=== PATIENT | male | born 1955 | race Caucasian/White ===

== ENCOUNTER 2020-08-12 10:12 | Observation (INO) ==
[~2020-08-12 10:12] MED LIST: *HR* HYDROmorphone PF 0.5 MG/0.5 ML SYRINGE IVP PRN; *HR* OxyCODONE Immed Rel 5 MG TABLET PO PRN; Acetaminophen IV 1,000 MG/100 ML BAG IVPB PRN; Ondansetron 4 MG/2 ML VIAL IVP PRN
[2020-08-12] MEDS ORDERED: CeFAZolin Syr 2,000MG/20 ML 2,000 MG/20 ML SYRINGE IVPB ONE ×3 (10:36→21:53)
[2020-08-12] MEDS: Ringers Solution, Lactated 1,000 ML IVC SCH ×2 (10:56→20:13)
[2020-08-12] MEDS ORDERED: Lidocaine HCL 4 ML Topical Solution (Laryng-O-Jet Kit Sterile Pak) TP ONE (11:15)
[2020-08-12] MEDS ORDERED: *HR* Propofol 200 MG/20 ML VIAL IVP ONE ×2 (11:21→14:42)
[2020-08-12] MEDS ORDERED: *HR* Midazolam HCl 2 MG/2 ML VIAL ONE (11:21)
[2020-08-12] MEDS ORDERED: *HR* HYDROMORPHONE 2 MG/ML VIAL ONE (11:21)
[2020-08-12] MEDS ORDERED: *HR* FentaNYL (PF) 100 MCG/2 ML VIAL ONE (11:21)
[2020-08-12] MEDS ORDERED: *HR* Rocuronium Bromide 50 MG/5 ML VIAL ONE (11:24)
[2020-08-12] MEDS ORDERED: Lidocaine -MPF 2% 2 ML VIAL ONE (11:24)
[2020-08-12] MEDS ORDERED: *HR* Succinylcholine 200 MG/10 ML VIAL IVP ONE (11:24)
[2020-08-12] MEDS ORDERED: Ondansetron 4 MG/2 ML VIAL ONE ×2 (11:24→15:15)
[2020-08-12] MEDS ORDERED: *HR* Remifentanil 1 MG VIAL IVP ONE ×3 (11:29→18:06)
[2020-08-12] MEDS ORDERED: Bacitracin 50,000 UNIT, Polymyxin B Sulfate 500,000 UNIT, Sodium Chloride IRRigation 1,... IR ONE (11:55)
[2020-08-12] MEDS ORDERED: Albumin Human 5% 25.0 GM/500 ML IV.SOLN ONE (12:09)
[2020-08-12] MEDS ORDERED: *HR* Phenylephrine 10 MG/ML VIAL ONE (18:24)
[2020-08-12] MEDS ORDERED: *HR* OxyCODONE Immed Rel 5 MG TABLET PO PRN ×2 (20:16→21:53)
[2020-08-12] MEDS ORDERED: *HR* HYDROmorphone PF 0.5 MG/0.5 ML SYRINGE IVP PRN (20:16)
[2020-08-12] MEDS ORDERED: Ondansetron 4 MG/2 ML VIAL IVP PRN ×2 (20:16→21:53)
[2020-08-12] MEDS ORDERED: Naloxone 0.4 MG/ML INJ IVP PRN (21:53)
[2020-08-12] MEDS ORDERED: Fluticasone Propionate Nasal 50 MCG/SPRAY BOTTLE NS PRN (21:53)
[2020-08-12] MEDS ORDERED: Ringers Solution, Lactated 1,000 ML IVC SCH ×2 (21:53)
[2020-08-12] MEDS ORDERED: NON-FORMULARY MEDICATION 1 EACH EACH (Omega-3 Fatty Acids [Fish Oil] 300 MG Capsule) PO SCH (21:53)
[2020-08-12] MEDS: gemfibroziL 600 MG TABLET PO SCH (22:14)
[2020-08-12] MEDS: Acetaminophen 325 MG TABLET PO PRN (23:38)
[2020-08-12] MEDS: CeFAZolin 2 GM/120 ML BAG IVPB SCH (23:39)
[2020-08-13] MEDS: Aspirin Enteric Coated 325 MG Tablet PO SCH (08:07)
[2020-08-13] MEDS: CeFAZolin 2 GM/120 ML BAG IVPB SCH (08:09)
[2020-08-13] MEDS: gemfibroziL 600 MG TABLET PO SCH ×2 (08:13→22:27)
[2020-08-13] MEDS: lisinopriL 20 MG TABLET PO SCH (08:15)
[2020-08-13] MEDS ORDERED: RED YEAST RICE 600 MG PO SCH (09:00)
[2020-08-13] MEDS ORDERED: *HR* Metformin 500 MG TABLET PO SCH (09:00)
[2020-08-13 10:16] LABS: Basophils % 0.4 %; Eosinophils # 0.1 K/mcL (0.0-0.6); Eosinophils % 0.4 %; Hematocrit 34.9 % (37.5-50.1); Hemoglobin 11.1 g/dL (12.9-16.9); Immature Granulocytes % 0.4 % (0-4); Lymphocytes # 2.7 K/mcL (0.6-4.6); Lymphocytes % 23.9 %; Mean Corpuscular HGB Conc 31.8 g/dL (31.6-35.5); Mean Corpuscular Hemoglobin 25.6 pg (28.0-33.3); Mean Corpuscular Volume 80.6 fL (83.0-100.0); Mean Platelet Volume 9.4 fL (9.4-12.4); Monocytes # 1.1 K/mcL (0.0-1.3); Monocytes % 9.8 %; Neutrophils # 7.3 K/mcL (1.6-8.9); Platelet Count 271 K/mcL (140-400); Red Blood Count 4.33 M/mcL (4.19-5.50); Red Cell Distribution Width 14.1 % (11.5-14.5); Segmented Neutrophils % 65.1 %; White Blood Count 11.2 K/mcL (4.3-11.1)
[2020-08-13] MEDS ORDERED: *HR* Dextrose 50 % in Water (Vial) 50 ML VIAL IVP PRN (10:29)
[2020-08-13] MEDS ORDERED: Dextrose Gel 15 GM/37.5 ML TUBE PO PRN ×2 (10:29)
[2020-08-13] MEDS ORDERED: D5% in Water 1,000 ML IVC PRN (10:29)
[2020-08-13 10:39] LABS: BUN/Creatinine Ratio 16 (6-26); Blood Urea Nitrogen 17 mg/dL (8-23); Calcium 8.4 mg/dL (8.6-10.3); Carbon Dioxide 25 mEq/L (23-29); Chloride 103 mEq/L (98-107); Glucose 94 mg/dL (70-105); Osmolality,Calculated 283 (280-300); Sodium 136 mEq/L (136-145); eGFR For African Americans > 60 (> 60); eGFR For Non-African Americans > 60 (> 60)
[2020-08-13] MEDS: Gabapentin 300 MG CAPSULE PO SCH ×3 (12:50→22:06)
[2020-08-13] MEDS: Insulin LISPRO 300 UNITS/3 ML VIAL SUBQ SCH ×2 (12:56→19:17)
[2020-08-13] MEDS: 0.9 % Sodium Chloride 1,000 ML IVC SCH ×2 (12:56→22:08)
[2020-08-13] MEDS: *HR* HYDROcodone/Acet 5/325 mg TABLET PO PRN (17:29)
[2020-08-13] MEDS: *HR* OxyCODONE Immed Rel 5 MG TABLET PO PRN (22:07)
[2020-08-14] MEDS: *HR* HYDROcodone/Acet 5/325 mg TABLET PO PRN (03:39)
[2020-08-14] MEDS: 0.9 % Sodium Chloride 1,000 ML IVC SCH (06:14)
[2020-08-14] MEDS: Insulin LISPRO 300 UNITS/3 ML VIAL SUBQ SCH ×3 (08:08→17:57)
[2020-08-14] MEDS: Gabapentin 300 MG CAPSULE PO SCH ×3 (08:34→20:18)
[2020-08-14] MEDS: *HR* OxyCODONE Immed Rel 5 MG TABLET PO PRN ×3 (08:34→16:34)
[2020-08-14] MEDS: Aspirin Enteric Coated 325 MG Tablet PO SCH (08:34)
[2020-08-14] MEDS: lisinopriL 20 MG TABLET PO SCH (08:35)
[2020-08-14] MEDS: gemfibroziL 600 MG TABLET PO SCH ×2 (09:45→20:24)
[2020-08-14] MEDS: Acetaminophen 325 MG TABLET PO PRN (20:18)
[2020-08-15] MEDS: *HR* OxyCODONE Immed Rel 5 MG TABLET PO PRN ×3 (01:17→17:21)
[2020-08-15] MEDS: Insulin LISPRO 300 UNITS/3 ML VIAL SUBQ SCH ×3 (08:32→17:22)
[2020-08-15] MEDS: Gabapentin 300 MG CAPSULE PO SCH ×2 (08:35→17:22)
[2020-08-15] MEDS: Aspirin Enteric Coated 325 MG Tablet PO SCH (08:35)
[2020-08-15] MEDS: lisinopriL 20 MG TABLET PO SCH (08:35)
[2020-08-15] MEDS: gemfibroziL 600 MG TABLET PO SCH (09:49)
[2020-08-15 14:47] VITALS: BP 110/74
[2020-08-15 18:14] LABS: Adenovirus Not Detected (Not Detect); Bordetella Pertussis Not Detected (Not Detect); Chlamydophila pneumoniae Not Detected (Not Detect); Coronavirus 229E Not Detected (Not Detect); Coronavirus HKU1 Not Detected (Not Detect); Coronavirus NL63 Not Detected (Not Detect); Coronavirus OC43 Not Detected (Not Detect); Human Metapneumovirus Not Detected (Not Detect); Human Rhinovirus/Enterovirus Not Detected (Not Detect); Influenza A Subtype 2009 H1 Not Detected (Not Detect); Influenza B Not Detected (Not Detect); Mycoplasma pneumoniae Not Detected (Not Detect); Parainfluenza Virus 1 Not Detected (Not Detect); Parainfluenza Virus 2 Not Detected (Not Detect); Parainfluenza Virus 3 Not Detected (Not Detect); Parainfluenza Virus 4 Not Detected (Not Detect); Respiratory Syncytial Virus Not Detected (Not Detect); SARS-CoV-2 Not Detected (Not Detect)
== END 2020-08-15 20:37 ==
LOC: 3NENU 10:12 → SAMDAY 10:12 → 3NENU 21:46
PROVIDERS: ADMIT Orthopaedic Surgery Orthopaedic Surgery of the Spine; ATTEND Orthopaedic Surgery Orthopaedic Surgery of the Spine